=== PATIENT | female | born 1960 | race Caucasian/White ===

== ENCOUNTER → 2018-08-28 | Outpatient (CLI) | payer BC ==
[~2018-08-28] MED LIST: GLUC500C29 PO; KET10 PO; LOR7.5/325 PO; NAPR-1043 PO
--- NOTE | 2018-08-28 12:11 | RADIOLOGY IMAGING REPORT ---
FACILITY: [facility] PATIENT NAME: Igor Tanner : 1960 MR: [id number] V: [id number] EXAM DATE: ORDERING PHYSICIAN: CLEMENTE GALO TECHNOLOGIST: Location: [facility] - [place] Patient: Igor Tanner : 1960 Visit/Account:[id number] Date of Sevice: 08/28/2018 DEXA Scan Clinical history: Postmenopausal. Comparison: None available. LUMBAR SPINE: The bone mineral density (BMD) measured from L1-L4 correlates with a Z-score 1.8 and a T-score of 1.2 which is Normal as defined by the World Health Organization. The corresponding risk of fracture in the lumbar spine is Not increased compared with a young adult reference population. HIP: Bone mineral density (BMD) measured in the Left total hip region correlates with a Z-score 0.9 and a T-score of 0.4 which is Normal as defined by the World Health Organization. The corresponding risk o f fracture in the hip is Not increased compared with a young adult reference population. T score le ft femoral neck -0.5 Bone mineral density (BMD) measured in the Femoral Neck region measures 0.968 g/cm2. Impression: 1. Lumbar spine: Normal. 2. Left Hip: Normal. 3. Femoral Neck: Bone Mineral Density is 0.968 g/cm2 The next DEXA scan of this patient should include the following sites: L1-L4 and the left hip. FRAX? WHO Fracture Risk Assessment Tool link: <http://www.shef.ac.uk/FRAX/tool.jsp?locationValue=9> PLEASE NOTE: 1) The World Health Organization defines low BMD as follows: T-score Normal > -1 Osteopenia < -1 and > -2.5 Osteoporosis < -2.5 without fractures Established osteoporosis < -2.5 with fractures 2) In general, you may wish to consider: Diagnosis Treatment Follow-up DEXA Normal BMD Prevention 2-3 years Osteopenia Prevention/therapy 1-2 years Osteoporosis Therapy Yearly 3) Fracture risk estimated from the T-score is more accurate for vertebral fractures (often spontane ous) than for hip fractures. Report Dictated By: Fabiola Edouard MD at 08/28/2018 12:04 PM Report E-Signed By: Fabiola Edouard MD at 08/28/2018 12:05 PM WSN:[email or web address]
--- NOTE | 2018-08-29 09:27 | RADIOLOGY IMAGING REPORT ---
FACILITY: [facility] [place] PATIENT NAME: TASHA YUN : [id number] MR: [id number] V: [id number] EXAM DATE: [id number] ORDERING PHYSICIAN: CLEMENTE GALO TECHNOLOGIST: Isis Dubon PROCEDURE:BILATERAL DIGITAL SCREENING MAMMOGRAM WITH CAD ASSISTED INTERPRETATION & 3D TOMOSYNTHESIS COMPARISON:Prior mammograms 08/21/16, 08/16/15, 08/04/14, 07/22/14, 07/21/13, 07/04/12. INDICATIONS:SCREENING FINDINGS: The breasts are predominantly fatty replaced. The parenchymal pattern has remained stable allowing for difference in mammographic technique & patient positioning. There is no evidence of malignant appearing mass, malignant appearing calcifications or other secondary sign of malignancy in either breast. DIAGNOSTIC CATEGORY 1--NEGATIVE. RECOMMENDATIONS: ROUTINE MAMMOGRAM AND CLINICAL EVALUATION. IMPRESSION: BIRADS 1: Negative. No significant abnormality is seen. Dictated by: Fabiola Edouard M.D. on 08/28/2018 at 17:04 Transcribed by: KIKE on 08/29/2018 at 8:34 Approved by: Fabiola Edouard M.D. on 08/29/2018 at 9:26 [facility]
== END ==
LOC: MAMO 00:33
PROVIDERS: ATTEND Nurse Practitioner Psychiatric/Mental Health
DX: Z13.820 Encounter for screening for osteoporosis (principal); Z12.31 Encounter for screening mammogram for malignant neoplasm of breast
CPT/HCPCS: 77063; 77067; 77080